=== PATIENT | male | born 1995 | race Caucasian/White ===

== ENCOUNTER 2017-07-01 15:36 | Emergency (ER) | payer MEDICAID, OTHER ==
[2017-07-01 15:51] VITALS: O2SAT 97
--- NOTE | 2017-07-01 16:39 | ERPHSYRPT ---
- History of Present Illness Time Seen by Provider: 07/01/17 16:30 Source: patient Exam Limitations: no limitations Patient Subjective Stated Complaint: pt states a 2x10 board fell 10 feet and struck pt to left side of head about a week and half ago, pt co pain from neck to lower back Triage Nursing Assessment: pt walked in , resp easy, skin w/d pink. has taken nsaids for pain Physician History: The patient is a 22-year-old male with his complaining that he was hit on the left side of his head 11 days ago with a 2 x 10" board use as scaffolding. The board fell at a construction site striking him on the left side of the head causing him to bend his head and neck towards the right. He states he doesn't remember the incident and had blacked out briefly. He did not fall to the ground. He complains primarily now of left-sided back pain extending from the upper back to the lower back. He has tried ibuprofen without relief. His past medical history is significant only for tonsillectomy. Timing/Duration: day(s) (), gradual onset Method of Injury: direct blow Quality: aching Back Pain Location: T-spine, lumbar spine, paraspinous muscles Severity of Pain-Max: moderate Severity of Pain-Current: moderate Modifying Factors: Improves With: pain medication Associated Symptoms: denies symptoms Previous symptoms: no prior history Allergies/Adverse Reactions: No Known Drug Allergies Allergy (Unverified 07/01/17 15:50) Hx Tetanus, Diphtheria Vaccination/Date Given: No Hx Influenza Vaccination/Date Given: No Hx Pneumococcal Vaccination/Date Given: No Immunizations Up to Date: Yes - Review of Systems Constitutional: No Fever, No Chills Eyes: No Symptoms Ears, Nose, & Throat: No Symptoms Respiratory: No Cough, No Dyspnea Cardiac: No Chest Pain, No Edema, No Syncope Abdominal/Gastrointestinal: No Abdominal Pain, No Nausea, No Vomiting, No Diarrhea Genitourinary Symptoms: No Dysuria Musculoskeletal: Back Pain, Injury, No Neck Pain Skin: No Rash Neurological: No Dizziness, No Focal Weakness, No Sensory Changes Psychological: No Symptoms Endocrine: No Symptoms Hematologic/Lymphatic: No Symptoms, Easy Bruising Immunological/Allergic: No Symptoms All Other Systems: Reviewed and Negative - Past Medical History Pertinent Past Medical History: No - Past Surgical History Past Surgical History: No - Social History Smoking Status: Current every day smoker Exposure to second hand smoke: Yes Drug Use: none Patient Lives Alone: No - Nursing Vital Signs Nursing Vital Signs: Initial Vital Signs Temperature 98.2 F 07/01/17 15:46 Pulse Rate 72 07/01/17 15:46 Respiratory Rate 16 07/01/17 15:46 Blood Pressure 135/72 07/01/17 15:46 O2 Sat by Pulse Oximetry 97 07/01/17 15:46 Pain Scale Pain Intensity [] 8 Pain Intensity 8 - Physical Exam General Appearance: no apparent distress, alert Eye Exam: PERRL/EOMI, eyes nml inspection Ears, Nose, Throat Exam: normal ENT inspection Neck Exam: normal inspection, non-tender, supple, full range of motion, No meningismus, No midline tenderness Respiratory Exam: normal breath sounds, lungs clear, No respiratory distress Cardiovascular Exam: regular rate/rhythm, normal heart sounds Gastrointestinal Exam: soft, No tenderness, No mass Rectal Exam: not done Back Exam: muscle spasm (left paraspinous) Extremity Exam: normal inspection, normal range of motion, No calf tenderness, No pedal edema Neurologic Exam: alert, oriented x 3, cooperative, maturity checker II-XII nml as tested, normal mood/affect, nml station & gait, sensation nml, No motor deficits Skin Exam: normal color, warm, dry, No rash SpO2 Interpretation: normal SpO2: 97 Oxygen Delivery: Room Air - Radiology Exams T-Spine X-ray Interpretation: Interpreted by me, Negative L-Spine X-ray Interpretation: Interpreted by me, Negative - CT Exams Head CT Interpretation: Negative (normal head CT per Dr Bernal.), Tele-radiologist Report (normal variant of absent C1 post arch, o/w neg per Dr Bernal) Cervical Spine CT Interpretation: Negative (absent C1 posterior arch, normal variant, o/w neg per Dr Bernal), Tele-radiologist Report Ordered Tests: Active Orders 24 hr Category Date Time Status CERVICAL SPINE WO CONTRAST [CT] Stat Exams 07/01/17 16:54 Taken HEAD WITHOUT CONTRAST [CT] Stat Exams 07/01/17 16:54 Taken LUMBAR LIMITED (2 OR 3 VIEWS) Stat Exams 07/01/17 16:55 Taken THORACIC SPINE (AP,LAT,SWIMM) Stat Exams 07/01/17 16:55 Taken Medication Summary Discontinued Medications Generic Name Dose Route Start Last Admin Trade Name Bogdan PRN Reason Stop Dose Admin Ketorolac Tromethamine 60 mg 07/01/17 18:00 07/01/17 18:06 Toradol 30 Mg Injection IM 07/01/17 18:01 60 mg STAT ONE Administration Ketorolac Tromethamine Confirm 07/01/17 18:04 Toradol 30 Mg Injection Administered 07/01/17 18:05 Dose 60 mg .ROUTE .STK-MED ONE - Progress Progress: improved Counseled pt/family regarding: diagnosis, rad results - Departure Time of Disposition: 18:18 Departure Disposition: Home Clinical Impression: Back spasm Condition: Stable Critical Care Time: No Referrals: DOCTOR,NO FAMILY [Primary Care Provider] - Additional Instructions: You have a back spasm. You were given Toradol 60 mg by IM in the ER. Take Flexeril 5 mg every 8 hours as needed for pain. Follow-up as needed. Prescriptions: Cyclobenzaprine HCl [Flexeril] 5 mg PO Q8H PRN PRN #10 tablet PRN Reason: Pain
[2017-07-01] MEDS ORDERED: TORAdol 30 mg Injection IM ONE (18:00)
[2017-07-01] MEDS ORDERED: TORAdol 30 mg Injection ONE (18:04)
[2017-07-01 18:28] VITALS: BP 128/62; PULSE 78
--- NOTE | 2017-07-02 08:35 | XRAY ---
Indication: Pain following head injury one week ago. Multiple contiguous axial images obtained through the head without contrast. Comparison: None Normal appearing brain parenchyma, ventricles, and bony calvarium. Visualized paranasal sinuses and mastoid air cells are clear. Impression: Normal CT head without contrast exam. CT DI 50.53
--- NOTE | 2017-07-02 08:40 | XRAY ---
Indication: Pain following head injury one week ago. Comparison: None 3 views of the lumbar spine demonstrates 5 lumbar vertebral segments in normal alignment. No bony, articular, or soft tissue abnormalities.
--- NOTE | 2017-07-02 08:40 | XRAY ---
Indication: Pain following head injury one week ago. Multiple contiguous axial images obtained through the cervical spine. Sagittal and coronal reformatted images obtained. Comparison: None Axial images demonstrates absent posterior arch of C1, normal variant. No acute fracture, suspicious bony lesions, or spinal canal stenosis. Sagittal and coronal reformatted images demonstrates normal alignment with disc spaces preserved. No acute compression fracture, subluxation, or jumped facet. Normal-appearing craniocervical junction. Visualized noncontrasted soft tissues including lung apices are unremarkable. Impression: Absent posterior arch of C1, normal variant. Remaining CT cervical spine is negative. CT DI 97.99
--- NOTE | 2017-07-02 08:42 | XRAY ---
Indication: Pain following head injury one week ago. Comparison: None Frontal/lateral thoracic spine demonstrates 12 rib-bearing thoracic segments in normal alignment. No bony, articular, or soft tissue abnormalities.
== END 2017-07-01 18:27 | disposition home or self-care (01) ==
LOC: ED 15:36
DX: M62.830 Muscle spasm of back (principal); M54.2 Cervicalgia; M54.6 Pain in thoracic spine; M54.5 Low back pain; W22.8XXA Striking against or struck by other objects, initial encounter
CPT/HCPCS: 70450; 72072; 72100; 72125; 96372; 99284; J1885

== ENCOUNTER 2022-06-18 18:20 | Emergency (ER) | payer SELFPAY ==
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
[2022-06-18] MEDS ORDERED: solu-MEDROL 125 MG, Sterile H2O 10 ml 2 ML IM ONE ×2 (18:34)
[2022-06-18 18:37] VITALS: BP 183/84; PULSE 94; O2SAT 97
[2022-06-18] MEDS ORDERED: solu-MEDROL ONE (18:37)
--- NOTE | 2022-06-19 09:01 | XRAY ---
Indication: Low back pain. Comparison: July 01, 2017 3 view lumbar spine again demonstrates normal bones and articulation. New mild diffuse scattered colonic fecal debris.
== END 2022-06-18 19:21 | disposition home or self-care (01) ==
LOC: ED 18:20
DX: M54.50 Low back pain, unspecified (principal); Z72.0 Tobacco use; Z79.52 Long term (current) use of systemic steroids; Z79.891 Long term (current) use of opiate analgesic
CPT/HCPCS: 72100; 96372; 99283; J2930

== ENCOUNTER 2025-09-28 12:56 | Emergency (ER) | payer SELFPAY ==
[2025-09-28 13:14] VITALS: TEMP 98
--- NOTE | 2025-09-28 13:32 | ERPHSYRPT ---
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 Pt ambulates with a stiff gait, able to speak in clear full sentences. Pt shaking and grunting. 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 Denies heavy lifting, fall or trauma. No abdominal pain. No nausea or vomiting. Patient rates pain +10/10. No similar symptoms in the past. No hematuria or dysuria Allergies/Adverse Reactions: No Known Drug Allergies Allergy (Verified 06/18/22 18:28) Hx Tetanus, Diphtheria Vaccination/Date Given: No Hx Influenza Vaccination/Date Given: No Hx Pneumococcal Vaccination/Date Given: No Immunizations Up to Date: No Travel Risk - International Travel Have you traveled outside of the country in past 3 weeks: No - Emerging Infectious Disease Are you exhibiting symptoms associated with any current EIDs: No - Review of Systems All Other Systems: Reviewed and Negative (As per HPI otherwise negative) - Past Medical History Pertinent Past Medical History: No - Past Surgical History Past Surgical History: No - Social History Smoking Status: Current every day smoker Exposure to second hand smoke: Yes Drug Use: none - Social Determinants of Health Will the patient participate in the screening: Declined to provide - Nursing Vital Signs Nursing Vital Signs: Initial Vital Signs Temperature 98.0 F 09/28/25 13:09 Pulse Rate 119 H 09/28/25 13:09 Respiratory Rate 20 09/28/25 13:09 Blood Pressure 146/88 09/28/25 13:09 O2 Sat by Pulse Oximetry 100 09/28/25 13:09 Pain Scale Pain Intensity [Lower Back] 10 Pain Intensity 10 - Physical Exam SpO2: 100 Comments: 09/28/25 13:31 General: Well-nourished well-developed. No apparent distress. HEENT: Normocephalic atraumatic no obvious facial or neck deformity or injury. Neck: Supple. No deformity or mass noted. CV: RRR NL Perfusion. No edema Resp: No Respiratory distress or adventitious breath sounds Abd: ND SNT Left CVA tenderness to palpation. Mid lumbar L3 region paraspinal tenderness without step-off or deformity. MSK: No deformity or TTP Neuro: Alert and [place] x4. No gross focal neurologic changes Psych: No SI, HI or grave disability Ordered Tests: Active Orders 24 hr Category Date Time Status ABDOMEN AND PELVIS W/0 CONTRAS [CT] Stat Exams 09/28/25 13:28 Completed RECONSTRUCTION [CT] Stat Exams 09/28/25 13:29 Completed UA W/RFX UR CULTURE Stat Lab 09/28/25 13:37 Completed Urine Triage Profile Stat Lab 09/28/25 13:37 Completed Medication Summary Discontinued Medications Generic Name Dose Route Start Last Admin Trade Name Freq PRN Reason Stop Dose Admin Hydrocodone Bitart/Acetaminophen 2 tab 09/28/25 13:26 09/28/25 13:34 Hydrocodone/Apap 5/325 1 Tab Tablet PO 09/28/25 13:27 2 tab STAT ONE Administration Hydrocodone Bitart/Acetaminophen Confirm 09/28/25 13:33 Hydrocodone/Apap 5/325 1 Tab Tablet Administered 09/28/25 13:34 Dose 2 tab .ROUTE .STK-MED ONE Diazepam 5 mg 09/28/25 13:27 09/28/25 13:34 Diazepam 5 Mg Tablet PO 09/28/25 13:28 5 mg STAT ONE Administration Diazepam Confirm 09/28/25 13:33 Diazepam 5 Mg Tablet Administered 09/28/25 13:34 Dose 5 mg .ROUTE .STK-MED ONE Ibuprofen 800 mg 09/28/25 13:27 09/28/25 13:34 Ibuprofen 400 Mg Tablet PO 09/28/25 13:28 800 mg STAT ONE Administration Ibuprofen Confirm 09/28/25 13:33 Ibuprofen 400 Mg Tablet Administered 09/28/25 13:34 Dose 800 mg .ROUTE .STK-MED ONE Lab/Rad Data: Laboratory Results 09/28/25 09/28/25 Range/Units 13:37 13:37 Urine Color Yellow (Yellow) Urine Appearance Clear (Clear) Urine pH 7.5 (4.6-8.0) Ur Specific [place] 1.010 (1.005-1.030) Urine Protein Negative (Negative) Urine Glucose (UA) Negative (Negative) mg/dL Urine Ketones Trace A (Negative) Urine Blood Negative (Negative) Urine Nitrite Negative (Negative) Urine Bilirubin Negative (Negative) Urine Urobilinogen 0.2 (0.2) mg/dL Ur Leukocyte Esterase Negative (Negative) U Hyaline Cast (Auto) NONE SEEN (0-2) /LPF Urine Microscopic RBC 0-2 (0-5) /HPF Urine Microscopic WBC 0-2 (0-5) /HPF Ur Epithelial Cells None Seen (None Seen) /HPF Urine Bacteria None Seen (None Seen) /HPF Urine Culture Reflexed NO (NO) Urine Opiates Level NEGATIVE (NEGATIVE) Ur Methadone NEGATIVE (NEGATIVE) Urine Barbiturates NEGATIVE (NEGATIVE) Ur Phencyclidine (PCP) NEGATIVE (NEGATIVE) Urine Amphetamine NEGATIVE (NEGATIVE) U Benzodiazepine Level NEGATIVE (NEGATIVE) Urine Cocaine NEGATIVE (NEGATIVE) Urine Marijuana (THC) NEGATIVE (NEGATIVE) - Progress Progress Note: 09/28/25 15:36 Patient rechecked doing well. Will place on NSAID and muscle relaxant. Went over all results. The patient's condition was discussed with themselves and/or family members in great detail. Precautions are given and need to return or call 911 immediately for any changes or worsening are discussed. Instructions on patient's condition and noting that conditions can change or worsen and that diagnosis are presumptive and can evolve are discussed. All questions were answered. All concerns addressed at this time. Patient will be given a note for work today and tomorrow to give himself a chance to recover. - Departure Departure Disposition: Home Clinical Impression: Back spasm Back pain Qualifiers: Back pain location: low back pain Chronicity: acute Back pain laterality: unspecified Sciatica presence: without sciatica Qualified Code(s): M54.50 - Low back pain, unspecified Condition: Stable Critical Care Time: No Referrals: DOCTOR,NO FAMILY [Primary Care Provider, UNKNOWN] - Follow up/PCP as directed Instructions: Low Back Pain (DC) Additional Instructions: You have been evaluated for an emergency medical condition. At this time, given the current history and events presented, the examination conducted and any possible testing you may have had, you have been given a presumptive diagnosis based on the current information is obtained. Your discharge diagnosis is presumptive and not necessarily definitive. Medical conditions present in various stages very often without all the symptoms or findings described in medical literature. Other symptoms, concerns or conditions may arise and your diagnoses may evolve or change and/or your condition could potentially worsen after the time of disposition or discharge. You have been given a presumptive diagnosis and your condition appears to be stable, but your medical issues can change or worsen. If there is worsening of your condition including difficulty breathing, swallowing, speaking, chest pain or pressure, intractable vomiting, worsening or changing mental status, numbness, tingling or weakness of your body or arms or legs, thoughts or plans of harming yourself or others, or any other concerns, call 911 and/or return immediately to the closest emergency department. It is important you follow-up with your doctor on the next business day. Call your doctor, or the referral provided if you do not have a doctor, when they open to schedule a follow-up appointment in the next 1 or latest 2 days. Please refer to the attached sheet. If you do not have primary care doctor, you can call the [facility] referral line at [phone]. Return immediately if your symptoms worsen or if you are unable to obtain further care. My team and I thank you for choosing the [facility] Emergency Department emergency healthcare needs. We wish you a speedy recovery. Very respectfully, Dr. Jena Mitchell M.D. [place] [employer] Board-certified Emergency Physician Prescriptions: Ibuprofen [Ibu] 800 mg PO Q8H PRN PRN #20 tablet PRN Reason: Pain Cyclobenzaprine HCl 10 mg [Cyclobenzaprine 10 MG] 10 mg PO TID PRN #15 tablet PRN Reason: Pain Hydrocodone/Acetaminophen [Hydrocodon-Acetaminophen 5-325] 1 each PO Q4-6HPRN PRN #4 tablet MDD 8 PRN Reason: Pain
[2025-09-28] MEDS ORDERED: Valium 5 MG ONE (13:33)
[2025-09-28] MEDS ORDERED: NORCO 5/325 MG ONE (13:33)
[2025-09-28] MEDS ORDERED: MOTRIN 400 MG ONE (13:33)
[2025-09-28] MEDS: MOTRIN 400 MG PO ONE (13:34)
[2025-09-28] MEDS: NORCO 5/325 MG PO ONE (13:34)
[2025-09-28] MEDS: Valium 5 MG PO ONE (13:34)
[2025-09-28 13:56] LABS: Glucose, Urine Negative (Negative); Protein,Urine Dip Negative (Negative); RBC 0-2 /HPF (0-5); WBC 0-2 /HPF (0-5)
[2025-09-28 14:36] LABS: Amphetamine,Urine NEGATIVE (NEGATIVE); Barbiturate,Urine NEGATIVE (NEGATIVE); Benzodiazepine,Urine NEGATIVE (NEGATIVE); Cocaine,Urine NEGATIVE (NEGATIVE); Methadone,Urine NEGATIVE (NEGATIVE); Opiate,Urine NEGATIVE (NEGATIVE); PCP,Urine NEGATIVE (NEGATIVE); THC,Urine NEGATIVE (NEGATIVE)
--- NOTE | 2025-09-28 14:50 | XRAY ---
Indication: Flank pain. Multiple contiguous axial images obtained through the abdomen and pelvis without contrast. Comparison: None Lung bases clear. Heart not enlarged. Noncontrasted stomach and bowel loops appear nonobstructed with normal appendix. There is moderate diffuse scattered colonic fecal debris throughout. No free fluid/air. Remaining liver, gallbladder, pancreas, spleen, adrenal glands, kidneys, ureters, bladder, and aorta are unremarkable for noncontrast exam. Osseous structures intact with incidental bilateral L5 spondylolysis without listhesis. Impression: Moderate diffuse colonic fecal stasis and bilateral L5 spondylolysis without listhesis. Remaining CT abdomen/pelvis without contrast exam normal.
--- NOTE | 2025-09-28 14:52 | XRAY ---
Indication: Pain. Sagittal, coronal, and axial reformatted images lumbar spine obtained using raw data from same-day CT abdomen/pelvis exam. Comparison: None Bilateral L5 spondylolysis without listhesis. Otherwise normal bones, articulation, and visualized noncontrasted soft tissues. Impression: Bilateral L5 spondylolysis without listhesis. Remaining CT lumbar spine normal.
[2025-09-28 15:46] VITALS: BP 117/75; PULSE 93; RESP 16
[2025-09-28 15:47] VITALS: O2SAT 100
== END 2025-09-28 15:56 | disposition home or self-care (01) ==
LOC: ED 12:56
DX: M54.50 Low back pain, unspecified (principal); M62.830 Muscle spasm of back; Z79.891 Long term (current) use of opiate analgesic; Z79.899 Other long term (current) drug therapy; Z72.0 Tobacco use